=== PATIENT | male | born 1965 | race Caucasian/White ===

== ENCOUNTER 2019-04-13 18:31 | Observation (INO) ==
[2019-04-13 18:52] LABS: Urine Bilirubin Negative (NEGATIVE); Urine Blood 250 /ul (NEGATIVE); Urine Ketone Negative (NEGATIVE); Urine Nitrite Negative (NEGATIVE); Urine Protein 15 mg/dL (NEGATIVE); Urine Urobilinogen Normal (NORMAL)
[2019-04-13 18:59] LABS: Urine Appearance Slightly Cloudy (CLEAR); Urine Bacteria TRACE; Urine Color Yellow; Urine RBC >50 /hpf (0-5); Urine WBC 0-5 /hpf (0-5)
[2019-04-13] MEDS ORDERED: NORMAL SALINE 1,000 ML IV ONE (19:08)
[2019-04-13] MEDS ORDERED: KETOROLAC TROMETHAMINE 30 MG/ML VIAL IV ONE (19:08)
[2019-04-13 19:20] LABS: Hematocrit 46.9 % (42.0-52.0); Hemoglobin 16.1 gm/dL (13.5-18.0); Mean Cell Volume 81.7 fl (78-100); Mean Corpuscular Hgb Conc 34.3 g/dl (32-36); Mean Platelet Volume 9.9 fl (8-11.3); Neutrophil # 4.9 K/mm3 (1.3-6.0); Neutrophil % 68.4 % (42-75.0); Platelet Count 255 K/mm3 (150-450); Red Blood Count 5.74 M/mm3 (4.7-6.0); Red Cell Distribution Width 13.1 % (11.5-14.0); White Blood Count 7.2 K/mm3 (4.0-10.5)
[2019-04-13 19:35] LABS: Albumin * 4.3 gm/dl (3.4-5.0); Anion Gap 13.8 mmol/L (6.8-13.8); BUN/Creatinine Ratio 18.5 (9.0-21.6); Bilirubin, Total 0.5 mg/dL (0.0-1.1); Ca. Corrected For Albumin 9.1 mg/dL (8.4-10.2); Calcium * 9.7 mg/dL (7.9-10.9); Carbon Dioxide 28.8 mmol/L (24-32.6); Potassium 3.6 mmol/L (3.4-4.6); Total Protein 7.4 gm/dL (6.2-8.2)
--- NOTE | 2019-04-13 21:24 | ERNOTE ---
ER Male HPI Date of Service: 04/13/19 Stated Complaint: abd pain ER Male: other - Flank pain Time Seen by Provider: 04/13/19 18:43 Source: patient, RN notes reviewed Exam Limitations: no limitations Immunizations: IMMUNIZATION HX Immunizations Up to Date Yes Allergies/Adverse Reactions: Allergies No Known Drug Allergies Allergy (Verified 04/13/19 18:38) Home Medications: HOME MEDICATIONS Losartan Potassium [Cozaar] 50 mg PO DAILY 04/13/19 [Last Taken Unknown] - History of Present Illness Narrative: Chaka is a 53 year old male who presents to the ED for left flank pain that began 2 or 3 days ago. The pain radiates into his groin and scrotum. He had similar pain with a kidney stone approximately 5 years ago. He has taken Tylenol without improvement. He thought the pain could possibly constipated, but he took a laxative and had a bowel movement without improvement as well. He denies any difficulty urinating. He is tolerating oral intake without nausea or vomiting. Onset Location: Present: left flank Radiation: Present: groin, scrotal Activities at Onset: Present: none Prior Abdominal Problems: Present: similar symptoms Modifying Factors - (Improves): Absent: defecting, rest, urinating Modifying Factors - (Worsens): Absent: movement, urinating Associated Symptoms: Absent: fever/chills, nausea, vomiting, dysuria, urinary frequency Prior Treatment: Absent: recently seen Review of Systems - Review of Systems Constitutional: Absent: recent illness, fever, chills EYE: Present: no symptoms reported ENT: Present: no symptoms reported Respiratory: Absent: shortness of breath, cough Cardiology: Absent: chest pain, syncope Gastrointestinal/Abdominal: Absent: nausea, vomiting, diarrhea, eating less, drinking less Genitourinary: Absent: frequency, dysuria, hematuria, decreased urinary output Musculoskeletal: Absent: muscle pain, joint pain Skin: Absent: rash, lesions Neurological: Absent: headache, dizziness/light-headedness Endocrine: Present: no symptoms reported Hematologic/Lymphatic: Absent: easy bruising, easy bleeding Psych: Present: no symptoms reported Medical History (Updated 04/13/19 @ 21:15 by Leela Townsend NP) History of kidney stones Hypertension Surgical History: Surgical History (Updated 04/13/19 @ 18:37 by Linn Ferro RN) Hx of nasal septoplasty Hx of vasectomy Family History: Family History (Updated 04/13/19 @ 18:37 by Linn Ferro RN) Other No pertinent family history Social History: (Last Reviewed 04/13/19 @ 21:21 by Leela Townsend NP) Tobacco: Smoking Status: Former smoker Physical Exam - Physical Exam General Appearance: Present: wd/wn, alert, mild distress Head Exam: Present: normal inspection Eye Exam: Normal inspection: bilateral Neck: Present: normal inspection, nontender, supple Respiratory: Present: no respiratory distress, normal breath sounds, no accessory muscle use, lungs clear Cardiovascular/Chest: Present: regular rate, rhythm, no murmur Gastrointestinal/Abdominal: Present: normal bowel sounds, nondistended, soft, tenderness - LLQ Back Exam: Present: normal range of motion, CVA tenderness (L). Absent: CVA tenderness (R) Extremity Exam: Present: normal inspection, normal range of motion Neurological Exam: Present: alert, oriented, normal mood/affect, no motor/sensory deficits Skin Exam: Present: normal color, warm/dry Progress - Results and Orders Patient's Lab Results:: I have reviewed the patient's lab results. - Vital Signs Patient's Vital Signs:: I have reviewed the patient's vital signs. Vital Signs: Vital Signs 04/13/19 18:33 04/13/19 19:44 Temperature 36.8 C Pulse Rate 66 68 Respiratory Rate 16 16 Blood Pressure 137/91 H 111/68 O2 Sat by Pulse Oximetry 99 98 - CT/Ultrasound CT/Ultrasound Narrative: Stone protocol CT shows a subcentimeter calculus in the left proximal ureter with mild hydronephrosis (per night rad prelim report) - Progress/Reassessment Chief Complaint: Genitourinary Problem Progress:: Improved Plan - Plan Plan: Dr. Interiano was contacted and plans to take the patient to surgery tomorrow morning. Dr. Watkins was contacted and will admit the patient to observation overnight. He is to be NPO after midnight. He was given one dose of Toradol and a liter of NS IV in the ED with relief of his pain. Departure Clinical Impression: Ureteral stone with hydronephrosis - Departure Disposition: Still a patient Condition: Stable
[2019-04-13] MEDS ORDERED: KETOROLAC TROMETHAMINE 30 MG/ML VIAL IV PRN (23:16)
--- NOTE | 2019-04-14 08:32 | HP ---
Chief Complaint - Chief Complaint Date of Service: 04/14/19 Time of Service: 08:15 Chief Complaint: Left lower abdominal pain History of Present Illness: 53-year-old male with a past medical history of hypertension presents with left lower abdominal pain for the past few days. Pain has been progressively worsening. He presented to the emergency department and was found to have an 11 mm proximal left ureteral stone with mild left-sided hydro-ureter. Urology was consulted and the patient was admitted and is scheduled to go to the operating room this morning. He denies chest pain, shortness of breath, palpitations. Medical History (Updated 04/14/19 @ 08:34 by Stacy Bob MD) History of kidney stones Hypertension Surgical History: Surgical History (Updated 04/13/19 @ 18:37 by Linn Ferro RN) Hx of nasal septoplasty Hx of vasectomy Family History: Family History (Updated 04/13/19 @ 18:37 by Linn Ferro RN) Other No pertinent family history Social History: (Last Reviewed 04/13/19 @ 22:27 by Ana Maria Caldwell RN) Tobacco: Smoking Status: Former smoker Review Of Systems (GEN) - Review of Systems Generalized/Overall Review: Absent: Chills, Fever EENTM: Absent: Eye Pain Respiratory: Absent: Shortness of Breath Cardiac: Absent: Chest Pain, Palpitations Abdominal: Absent: Abdominal Pain Musculoskeletal: Absent: Back Pain Misc: All systems neg except as marked Immunizations: IMMUNIZATION HX Immunizations Up to Date Yes Allergies/Adverse Reactions: Allergies Allergy/AdvReac Type Severity Reaction Status Date / Time No Known Drug Allergies Allergy Verified 04/13/19 22:26 Home Medications: HOME MEDICATIONS Losartan Potassium [Cozaar] 50 mg PO DAILY 04/13/19 [Last Taken 04/13/19 0900] Exam - Exam Vital Signs: Vital Signs - Last Taken Temp 36.5 C 04/14/19 06:11 Pulse 80 04/14/19 06:11 Resp 18 04/14/19 06:11 BP 130/87 04/14/19 06:11 Pulse Ox 96 04/14/19 06:11 Constitutional: Present: Alert, Cooperative, Well developed, Well nourished, No distress ENT Exam: Present: hearing grossly normal, moist mucous membranes Eye Exam: bilateral eye: normal inspection, EOMI Neck: Present: non-tender, supple, trachea midline. Absent: lymphadenopathy (R), lymphadenopathy (L) Back Exam: Present: normal inspection, no CVA tenderness, no vertebral tenderness Respiratory: Present: lungs clear, normal breath sounds, no respiratory distress, no accessory muscle use, No wheezing. Absent: crackles Cardiovascular/Chest: Present: normal peripheral pulses, regular rate, rhythm, no edema Peripheral Pulses: dorsalis-pedis (R): 2+, dorsalis-pedis (L): 2+ Abdomen: Present: Normal bowel sounds, soft, nontender Extremity: Present: no pedal edema Skin Exam: Present: normal color, warm/dry Neurologic: Present: alert, normal mood/affect Appearance: Present: appropriate insight Eye contact: Present: cooperative, good eye contact Thoughts: Present: normal thought pattern Diagnostic Studies: Abnormal Lab Results 04/13/19 Range/Units 18:42 Urine Protein 15 H (NEGATIVE) mg/dL Urine Blood 250 H (NEGATIVE) /ul Urine RBC >50 H (0-5) /hpf Laboratory Results WBC 7.2 K/mm3 (4.0-10.5) 04/13/19 19:15 RBC 5.74 M/mm3 (4.7-6.0) 04/13/19 19:15 Hgb 16.1 gm/dL (13.5-18.0) 04/13/19 19:15 Hct 46.9 % (42.0-52.0) 04/13/19 19:15 MCV 81.7 fl (78-100) 04/13/19 19:15 MCH 28.0 pg (27-31) 04/13/19 19:15 MCHC 34.3 g/dl (32-36) 04/13/19 19:15 RDW 13.1 % (11.5-14.0) 04/13/19 19:15 Plt Count 255 K/mm3 (150-450) 04/13/19 19:15 MPV 9.9 fl (8-11.3) 04/13/19 19:15 Immature Gran % (Auto) 0.30 % (0.001-0.429) 04/13/19 19:15 Immature Gran # (Auto) 0.02 K/mm3 (0.000-0.0310) 04/13/19 19:15 68.4 % (42-75.0) 04/13/19 19:15 24.7 % (20-51) 04/13/19 19:15 5.4 % (0.0-9) 04/13/19 19:15 0.6 % (0.0-3.0) 04/13/19 19:15 0.6 % (0.0-1.0) 04/13/19 19:15 Nucleated RBC % 0.0 k/mm3 (0-1) 04/13/19 19:15 4.9 K/mm3 (1.3-6.0) 04/13/19 19:15 1.77 k/mm3 (1.5-3.5) 04/13/19 19:15 0.4 k/mm3 (0.0-1.0) 04/13/19 19:15 0.0 k/mm3 (0.0-0.7) 04/13/19 19:15 Absolute Basophils 0.0 k/mm3 (0.0-0.1) 04/13/19 19:15 Sodium 142 mmol/L (132-142) 04/13/19 19:15 142 mmol/L (130-142) 04/13/19 19:15 Potassium 3.6 mmol/L (3.4-4.6) 04/13/19 19:15 Chloride 103 mmol/L (97-106) 04/13/19 19:15 Carbon Dioxide 28.8 mmol/L (24-32.6) 04/13/19 19:15 13.8 mmol/L (6.8-13.8) 04/13/19 19:15 BUN 22 mg/dL (6-23) 04/13/19 19:15 1.19 mg/dL (0.4-1.4) 04/13/19 19:15 Est GFR (Non-Af Amer) 68 mL/min (60-130) 04/13/19 19:15 18.5 (9.0-21.6) 04/13/19 19:15 100 mg/dL (70-110) 04/13/19 19:15 Calcium 9.7 mg/dL (7.9-10.9) 04/13/19 19:15 Calcium Adj for Albumin 9.1 mg/dL (8.4-10.2) 04/13/19 19:15 0.5 mg/dL (0.0-1.1) 04/13/19 19:15 AST 23 U/L (0-48) 04/13/19 19:15 ALT 24 U/L (19-67) 04/13/19 19:15 72 U/L (50-170) 04/13/19 19:15 7.4 gm/dL (6.2-8.2) 04/13/19 19:15 4.3 gm/dl (3.4-5.0) 04/13/19 19:15 Yellow 04/13/19 18:42 Slightly cloudy (CLEAR) 04/13/19 18:42 6.0 pH (5.0-7.0) 04/13/19 18:42 Ur Specific [place] 1.020 SP.GR. (1.005-1.030) 04/13/19 18:42 15 mg/dL (NEGATIVE) H 04/13/19 18:42 Negative mg/dL (NEGATIVE) 04/13/19 18:42 Negative mg/dL (NEGATIVE) 04/13/19 18:42 250 /ul (NEGATIVE) H 04/13/19 18:42 Negative (NEGATIVE) 04/13/19 18:42 Negative mg/dl (NEGATIVE) 04/13/19 18:42 Prot Sulfosalicylic Acd 1+ mg/dL (0) 04/13/19 18:42 Normal EU/dl (NORMAL) 04/13/19 18:42 Ur Leukocyte Esterase Negative /ul (NEGATIVE) 04/13/19 18:42 >50 /hpf (0-5) H 04/13/19 18:42 0-5 /hpf (0-5) 04/13/19 18:42 Ur Epithelial Cells 0-5 /hpf (0-5) 04/13/19 18:42 Trace (NONE) 04/13/19 18:42 No culture indicated 04/13/19 18:42 Assessment/Plan - Narrative Narrative: 53-year-old male with a past medical history of hypertension presents with left lower abdominal pain for the past few days. Pain has been progressively worsening. He presented to the emergency department and was found to have an 11 mm proximal left ureteral stone with mild left-sided hydro-ureter. Urology was consulted and the patient was admitted and is scheduled to go to the operating room this morning. He denies chest pain, shortness of breath, palpitations. He is medically cleared for the procedure. - Assessment/Plan (1) Left ureteral stone Assessment: He has a left ureteral stone with associated hydroureter. Pain well controlled with Toradol. He is scheduled to go to the operating room this morning with Dr. Interiano. Problem: Acute (2) HTN (hypertension) Assessment: Stable, well controlled, resume home meds as needed. Problem: Chronic Qualifiers: Hypertension type: essential hypertension Qualified Code(s): I10 - Essential (primary) hypertension (3) Hydroureter, left Assessment: He has a left ureteral stone with associated hydroureter. Pain well controlled. He is scheduled to go to the operating room this morning with Dr. Interiano. Problem: Acute
--- NOTE | 2019-04-14 08:46 | ANES ---
Anesthesia Pre Procedure Eval Vitals/Labs: Last Vital Signs Temp 36.5 C 04/14/19 06:11 Pulse 80 04/14/19 06:11 Resp 18 04/14/19 06:11 BP 130/87 04/14/19 06:11 Pulse Ox 96 04/14/19 06:11 Laboratory Last Values WBC 7.2 K/mm3 (4.0-10.5) 04/13/19 19:15 RBC 5.74 M/mm3 (4.7-6.0) 04/13/19 19:15 Hgb 16.1 gm/dL (13.5-18.0) 04/13/19 19:15 Hct 46.9 % (42.0-52.0) 04/13/19 19:15 MCV 81.7 fl (78-100) 04/13/19 19:15 MCH 28.0 pg (27-31) 04/13/19 19:15 MCHC 34.3 g/dl (32-36) 04/13/19 19:15 RDW 13.1 % (11.5-14.0) 04/13/19 19:15 Plt Count 255 K/mm3 (150-450) 04/13/19 19:15 MPV 9.9 fl (8-11.3) 04/13/19 19:15 Immature Gran % (Auto) 0.30 % (0.001-0.429) 04/13/19 19:15 Immature Gran # (Auto) 0.02 K/mm3 (0.000-0.0310) 04/13/19 19:15 68.4 % (42-75.0) 04/13/19 19:15 24.7 % (20-51) 04/13/19 19:15 5.4 % (0.0-9) 04/13/19 19:15 0.6 % (0.0-3.0) 04/13/19 19:15 0.6 % (0.0-1.0) 04/13/19 19:15 Nucleated RBC % 0.0 k/mm3 (0-1) 04/13/19 19:15 4.9 K/mm3 (1.3-6.0) 04/13/19 19:15 1.77 k/mm3 (1.5-3.5) 04/13/19 19:15 0.4 k/mm3 (0.0-1.0) 04/13/19 19:15 0.0 k/mm3 (0.0-0.7) 04/13/19 19:15 Absolute Basophils 0.0 k/mm3 (0.0-0.1) 04/13/19 19:15 Sodium 142 mmol/L (132-142) 04/13/19 19:15 142 mmol/L (130-142) 04/13/19 19:15 Potassium 3.6 mmol/L (3.4-4.6) 04/13/19 19:15 Chloride 103 mmol/L (97-106) 04/13/19 19:15 Carbon Dioxide 28.8 mmol/L (24-32.6) 04/13/19 19:15 13.8 mmol/L (6.8-13.8) 04/13/19 19:15 BUN 22 mg/dL (6-23) 04/13/19 19:15 1.19 mg/dL (0.4-1.4) 04/13/19 19:15 Est GFR (Non-Af Amer) 68 mL/min (60-130) 04/13/19 19:15 18.5 (9.0-21.6) 04/13/19 19:15 100 mg/dL (70-110) 04/13/19 19:15 Calcium 9.7 mg/dL (7.9-10.9) 04/13/19 19:15 Calcium Adj for Albumin 9.1 mg/dL (8.4-10.2) 04/13/19 19:15 0.5 mg/dL (0.0-1.1) 04/13/19 19:15 AST 23 U/L (0-48) 04/13/19 19:15 ALT 24 U/L (19-67) 04/13/19 19:15 72 U/L (50-170) 04/13/19 19:15 7.4 gm/dL (6.2-8.2) 04/13/19 19:15 4.3 gm/dl (3.4-5.0) 04/13/19 19:15 Yellow 04/13/19 18:42 Slightly cloudy (CLEAR) 04/13/19 18:42 6.0 pH (5.0-7.0) 04/13/19 18:42 Ur Specific [place] 1.020 SP.GR. (1.005-1.030) 04/13/19 18:42 15 mg/dL (NEGATIVE) H 04/13/19 18:42 Negative mg/dL (NEGATIVE) 04/13/19 18:42 Negative mg/dL (NEGATIVE) 04/13/19 18:42 250 /ul (NEGATIVE) H 04/13/19 18:42 Negative (NEGATIVE) 04/13/19 18:42 Negative mg/dl (NEGATIVE) 04/13/19 18:42 Prot Sulfosalicylic Acd 1+ mg/dL (0) 04/13/19 18:42 Normal EU/dl (NORMAL) 04/13/19 18:42 Ur Leukocyte Esterase Negative /ul (NEGATIVE) 04/13/19 18:42 >50 /hpf (0-5) H 04/13/19 18:42 0-5 /hpf (0-5) 04/13/19 18:42 Ur Epithelial Cells 0-5 /hpf (0-5) 04/13/19 18:42 Trace (NONE) 04/13/19 18:42 No culture indicated 04/13/19 18:42 HOME MEDICATIONS Losartan Potassium [Cozaar] 50 mg PO DAILY 04/13/19 [Last Taken 04/13/19 0900] Allergies/Adverse Reactions: Allergies Allergy/AdvReac Type Severity Reaction Status Date / Time No Known Drug Allergies Allergy Verified 04/13/19 22:26 - Planned Procedure Planned Procedure: URETERAL STONE WITH HYDRONEPHROSIS Medication List Reviewed:: Yes Allergies Verified: Yes Medical History (Updated 04/13/19 @ 21:15 by Leela Townsend NP) History of kidney stones Hypertension Surgical History (Updated 04/13/19 @ 18:37 by Linn Ferro RN) Hx of nasal septoplasty Hx of vasectomy Family History (Updated 04/13/19 @ 18:37 by Linn Ferro RN) Other No pertinent family history - Family Anesthesia History Family History:: no untoward family reactions to anesthesia, no familial bleeding tendencies, no family history of clotting disorders, no family history of premature - Airway/Neck/Teeth Within Normal Limits:: Yes Teeth Condition: intact Mallampatti Score: 3 Thyromental (T-M) distance: > 6 cm Mandibulo Hyoid distance: > 3 cm - Respiratory Respiratory Physical: lungs clear Smoking Status: Former smoker Discussed smoking cessation including day of surgery: No Sleep Apnea currently treated: Yes Discussed Risks/Treatment of CELIA: No - Cardiovascular Tolerate Activity: Good Heart Sounds: S1 & S2, Regular - Anesthesia Assessment and Plan ASA Class: PS, II, E Anesthesia Type Plan: General ET
[2019-04-14] MEDS ORDERED: OXYBUTYNIN CHLORIDE 5 MG TABLET PO PRN (08:50)
[2019-04-14] MEDS: RINGER'S SOLUTION,LACTATED 1,000 ML IV PRN ×2 (08:50→10:04)
--- NOTE | 2019-04-14 08:50 | CONS ---
[facility] - General Date of Service: 04/14/19 Source: patient - History of Present Illness Initial Comments: 53-year-old male who was admitted last evening from the ER for a 7 mm left ureteral stone. He reports having a couple days of left lower abdominal pain that became quite severe last evening. Stone protocol CT scan was done and I reviewed the report and images. He has a 7 mm proximal left ureteral stone with moderate hydronephrosis. There is also an approximate 6 mm nonobstructing left kidney stone. He has a tiny sukumar of a stone in the right kidney. He does report passing a kidney stone about 5 years ago. He is a heavy Diet Coke drinker. Labs were reviewed including a CBC and a BMP. Nothing remarkable. Urinalysis showed no sign of infection just blood He was admitted overnight. Not having much pain. He well-controlled with just Toradol last evening. He has been straining the urine and no stone is come out. He reports passing the urine well. Denies any major medical issues. Family history: No reported problems with stone Social history: Non-smoker Allergies/Adverse Reactions: Allergies No Known Drug Allergies Allergy (Verified 04/13/19 22:26) Home Medications: Home Medications Medication Instructions Recorded Last Taken Losartan Potassium [Cozaar] 50 mg PO DAILY 04/13/19 04/13/19 0900 Medications - Medications Current Medications: Current Medications Ketorolac Tromethamine (Toradol) 30 mg IV Q6H PRN PRN Reason: Pain Stop: 04/18/19 23:17 Last Admin: 04/14/19 02:55 Dose: 30 mg Documented by: Review of Systems - Review of Systems Generalized/Overall Review: Present: No Symptoms Reported EENTM: Present: No Symptoms Reported Respiratory: Present: No Symptoms Reported Cardiac: Present: No Symptoms Reported Abdominal: Present: Abdominal Pain Genitourinary: Present: No Symptoms Reported Musculoskeletal: Present: No Symptoms Reported Neurological: Present: No Symptoms Reported Skin: Present: No Symptoms Reported Endocrine: Present: No Symptoms Reported Physical Examination - Exam Vital Signs: Vital Signs - Last Taken Temp 97.7 F 04/14/19 06:11 Pulse 80 04/14/19 06:11 Resp 18 04/14/19 06:11 BP 130/87 04/14/19 06:11 Pulse Ox 96 04/14/19 06:11 O2 Oxygen Delivery Method Room Air Constitutional: Present: Alert, Oriented x3 ENT Exam: Present: hearing grossly normal Respiratory: Present: chest non-tender, lungs clear Cardiovascular/Chest: Present: normal peripheral pulses Abdomen: Present: Normal bowel sounds, soft, nontender /Rectal: Present: External genitalia normal Extremity: Present: normal range of motion Skin Exam: Present: normal color, warm/dry Neurologic: Present: no motor/sensory deficits Appearance: Present: appropriate appearance Eye contact: Present: cooperative, good eye contact - Results and Findings: Narrative: Patient has an obstructing 7 mm proximal left ureteral stone. Unlikely to pass. Not having pain currently but will likely develop severe pain if we send him home. At this point he wishes to proceed with surgery. I explained my plan will be to do ureteroscopy with laser lithotripsy. Discussed risks including need for 2 procedures, need for a stent which can cause irritation/discomfort, risk of infection, risk of injury to the ureter as well as anesthetic complications. He wishes to proceed. Adding him on for today. Lab/Microbiology results last 24 hrs: Abnormal/Pending Laboratory Last 24 HRS 04/13/19 18:42 Urine Protein 15 H Urine Blood 250 H Urine RBC >50 H
[2019-04-14] MEDS ORDERED: HYDROcodone/ACETAMINOPHEN 1 EACH TABLET PO PRN (08:51)
[2019-04-14] MEDS ORDERED: ceFAZolin SODIUM/DEXTROSE,ISO 2 GM/50 ML BAG IV ONE (08:52)
--- NOTE | 2019-04-14 08:55 | OR ---
Operative Report - Dictated Report Narrative: Procedure: cystoscopy with left retrograde pyelogram, left ureteroscopy, laser lithotripsy and left ureteral stent placement Preop dx: left ureteral and kidney stones Postop dx: same Anesthesia: gen Blood loss: minimal Drains: 6 x 26 double-J left ureteral stent Specimen: Ureteral stone fragments Complications: None Description of the procedure: Patient was properly identified and consented. He was brought to the operating room and general anesthesia was induced. He was prepped and draped in the dorsolithotomy position. Timeout was performed. Rigid cystoscope was passed easily down the urethra and into the bladder. Bladder showed no stones or lesions. Single ureters bilaterally. Left ureteral orifice was cannulated with a 5 [place] open-ended catheter and Isovue contrast was injected for a total of [address] Interiano performed and interpreted left retrograde pyelogram. This showed an obvious filling defect in left proximal ureter as expected from stone. I then advanced a Solo wire past the stone. Over the Solo wire a dual-lumen catheter was advanced and more Isovue contrast injected to make sure that there was no extravasation which there was not. I then advanced a Super Stiff wire through the dual-lumen catheter up to the stone and then the dual-lumen catheter removed. Over the Super Stiff wire I advanced my flexible ureteroscope without difficulty up to the stone. The stone was significantly impacted. Using a 273 m holmium laser fiber began laser lithotripsy. The stone was chipped away and eventually broke through. Several pieces loaded up into the left renal pelvis. I went up into the left renal pelvis and finished lithotripsy several stone fragments. I then was able to identify about a 6 mm left kidney stone which I also used a holmium laser fiber to break into small pieces. No fragments larger than 3 mm were seen. I slowly backed the scope out and no significant ureteral stone fragments were seen and no signs of injury to the ureter. Scope was removed. I backfed over my safety wire with the rigid cystoscope. A 6 x 26 double-J stent was then advanced over the wire. Wire removed. Fluoroscopy confirmed a coil in the left upper pole and I visualize a coil within the bladder. The bladder was then drained. Couple small pieces were retrieved. Patient was awoken from anesthesia return to recovery in good condition. Plan: follow up for stent removal next week which my office will arrange
--- NOTE | 2019-04-14 10:00 | ANES ---
Post Anesthesia Discharge - Transfer of Care Transfer of Care handoff given to nurse: Yes - Discharge from PACU Discharge from PACU when meets criteria: Yes - Discharge to ASU Discharge to ASU-no complications/pt stable: Yes
--- NOTE | 2019-04-14 10:42 | DS ---
(1) Left ureteral stone Diagnosis(s): S/p cystoscopy with left retrograde pyelogram, left ureteroscopy, laser lithotripsy and left ureteral stent placement with Dr. Interiano on April 14, 2019. Problem: Resolved (2) HTN (hypertension) Diagnosis(s): Resume home meds. Problem: Chronic Qualifiers: Hypertension type: essential hypertension Qualified Code(s): I10 - Essential (primary) hypertension (3) Hydroureter, left Problem: Resolved Description of Stay: 53-year-old male with a past medical history of hypertension presents with left lower abdominal pain for the past few days. Pain has been progressively worsening. He presented to the emergency department and was found to have an 11 mm proximal left ureteral stone with mild left-sided hydro-ureter. S/p cystoscopy with left retrograde pyelogram, left ureteroscopy, laser lithotripsy and left ureteral stent placement with Dr. Interiano on April 14, 2019. He will be discharged home today. He is stable and doing well. Procedures Performed: see notes below List Procedures: S/p cystoscopy with left retrograde pyelogram, left ureteroscopy, laser lithotripsy and left ureteral stent placement with Dr. Interiano on April 14, 2019. Results and Findings: Lab Pending Results 04/13/19 18:42: Urine Color Yellow, Urine Appearance Slightly cloudy, Urine pH 6.0, Ur Specific [place] 1.020, Urine Protein 15 H, Urine Glucose (UA) Negative, Urine Ketones Negative, Urine Blood 250 H, Urine Nitrate Negative, Urine Bilirubin Negative, Prot Sulfosalicylic Acd 1+, Urine Urobilinogen Normal, Ur Leukocyte Esterase Negative, Urine RBC >50 H, Urine WBC 0-5, Ur Epithelial Cells 0-5, Urine Bacteria Trace, Urine Culture Comments No culture indicated 04/13/19 19:15: WBC 7.2, RBC 5.74, Hgb 16.1, Hct 46.9, MCV 81.7, MCH 28.0, MCHC 34.3, RDW 13.1, Plt Count 255, MPV 9.9, Immature Gran % (Auto) 0.30, Immature Gran # (Auto) 0.02, Neutrophils % 68.4, Lymphocytes % 24.7, Monocytes % 5.4, Eosinophils % 0.6, Basophils % 0.6, Nucleated RBC % 0.0, Neutrophils # 4.9, Lymphocytes # 1.77, Monocytes # 0.4, Eosinophils # 0.0, Absolute Basophils 0.0 04/13/19 19:15: Sodium 142, Plasma Sodium 142, Potassium 3.6, Chloride 103, Carbon Dioxide 28.8, Anion Gap 13.8, BUN 22, Creatinine 1.19, Est GFR (Non-Af Amer) 68, BUN/Creatinine Ratio 18.5, Random Glucose 100, Calcium 9.7, Calcium Adj for Albumin 9.1, Total Bilirubin 0.5, AST 23, ALT 24, Alkaline Phosphatase 72, Total Protein 7.4, Albumin 4.3 Discharge Location: Home Disposition: Home self-care Condition: Stable Discharge Activity: Activity as tolerated Discharge Diet: Low salt Prescriptions (Any new or edited meds): Oxybutynin Chloride [Ditropan] 5 mg PO TID PRN #15 tab PRN Reason: Bladder Spasms HYDROcodone/ACETAMINOPHEN [[place] 5-325] 1 ea PO Q4H PRN #30 tab PRN Reason: Pain Complete Home Medications List: Complete Home Medication List: Losartan Potassium [Cozaar] 50 mg PO DAILY 04/13/19 HYDROcodone/ACETAMINOPHEN [[place] 5-325] 1 ea PO Q4H PRN #30 tab 04/14/19 Oxybutynin Chloride [Ditropan] 5 mg PO TID PRN #15 tab 04/14/19
--- NOTE | 2019-04-14 12:04 | ANES ---
Post Anesthesia Assessment - Vital Signs Vitals: Last Vital Signs Temp 36.5 C 04/14/19 10:28 Pulse 92 04/14/19 11:43 Resp 16 04/14/19 11:43 BP 135/99 H 04/14/19 11:43 Pulse Ox 99 04/14/19 11:43 Airway Patency: Normal - Mental Status Level Of Consciousness: Awake - Pain Level Pain Score: 2 - N/V Assessment Nausea/Vomiting Presence: None Dehydration:: No
[2019-04-14 13:30] VITALS: BP 137/86
--- NOTE | 2019-04-16 03:21 | PATH ---
PHYSICIAN: Stacy Bob MD / Mina Interiano MD urologist LAB#: [id number] SPECIMEN DATE: 04/16/2019 SPECIMEN: Left ureteral and kidney stones CLINICAL INFORMATION: The patient is a 53-year-old man who was admitted to [facility] from the emergency room with a 7 mm left ureteral stone and 6 mm nonobstructing left kidney stone. Patient underwent cystoscopy with left retrograde pyelogram, left ureteroscopic, laser lithotripsy and left ureteral stent placement. Operative findings: Impacted left ureteral stone which was fragmented by laser lithotripsy and 6 mm left kidney stone. Fragments are no greater than 3 mm and a front desk representative sample submitted for stone analysis. GROSS DESCRIPTION: The specimen is received fresh in a urine container appropri ately designated, "left ureter and kidney stones for analysis." The specimen consists of a 1 mm black stone fragment. The specimen is retained for gross only analysis and sent for stone analysis. DIAGNOSIS: URINARY STONE, LEFT URETER AND KIDNEY, CYSTOSCOPY WITH LEFT RETROGRADE PYELOGRAM, LEFT URETEROSCOPIC LASER LITHOTRIPSY AND LEFT URETERAL STENT PLACEMENT: -URINARY CALCULUS IDENTIFIED (SEE GROSS DESCRIPTION) -URINARY STONE SENT FOR ANALYSIS, REPORT TO FOLLOW
== END 2019-04-14 14:05 | disposition home or self-care (01) ==
LOC: ER 18:31 → MS 18:31
PROVIDERS: ADMIT Internal Medicine; ATTEND Internal Medicine
CPT/HCPCS: 36415; 74176; 74420; 80053; 81001; 82365; 85025; 88300; 99285; G0378